=== PATIENT | male | born 1970 | race Caucasian/White ===

== ENCOUNTER → 2017-03-20 | Outpatient (CLI) | payer OTHER ==
--- NOTE | ~2017-03-20 | PUL ---
PATIENT'S NAME: RONNY ORTIZ [facility] AGE: 46 Y [address] ROOM: [place] [id number] LOCATION: [facility] ADMIT DATE: 03/20/2017 Pulmonary DISCHARGE DATE: FAMILY PHYSICIAN: DAYANA CHEUNG MD ATTENDING PHYSICIAN: DAYANA CHEUNG NAME OF PROCEDURE: Sleep study PROCEDURE DATE: 03/20/17 TECH: RAY Muñiz [place]: [facility] [id number] TECHNICAL PARAMETERS: The patient was studied using International 10/20 measuring system. While the patient was studied, there was continuous monitoring of EEG (8 leads), EOG (2 leads), EKG (3 leads), submental EMG (3 leads), tibial (4 leads), respiratory inductive plethysmography (RIP) for thoracic and abdominal effort, oral and nasal airflow with a thermocouple and pressure transducer, and oximetry. The certified technician specialist also performed visual and auditory observations noting things like body position, patient's status, breath sounds, artifact, snoring level and patient comments. Continuous sound was monitored using a 2-way speaker system and video monitoring was performed using an infrared camera. Review of the entire study was performed epoch by epoch utilizing a single epoch and multiple epoch capability sleep system. MEDICAL HISTORY: The patient is a 46-year-old massively obese gentleman with daytime sleepiness and snoring. SLEEP STAGE SUMMARY: The patient was studied for 460 minutes of which he slept 130 minutes. He fell asleep in 49 minutes and slept for 28% of the night. Sleep architecture revealed a decline in slow wave and REM sleep. RESPIRATORY SUMMARY: Oxygen saturations ranged from 78-96%. There were 54 obstructive apneas and 32 hypopneas for an apnea/hypopnea index severely elevated at 39.7 events per hour. The patient slept poorly through the night and the majority of events occurred too late in the study to allow for initiation of CPAP. EKG SUMMARY: No significant dysrhythmias were noted. LIMB MOVEMENT SUMMARY: No clinically relevant periodic limb movements were noted. SUMMARY: Severe obstructive sleep apnea. PATIENT'S NAME: RONNY ORTIZ [facility] AGE: 46 Y [address] ROOM: [place] [address] LOCATION: [facility] ADMIT DATE: 03/20/2017 Pulmonary DISCHARGE DATE: FAMILY PHYSICIAN: DAYANA CHEUNG MD ATTENDING PHYSICIAN: DAYANA CHEUNG PLAN: Would repeat this study with initiation of CPAP. Patient will receive results from the ordering provider. PENNY PASCUAL MD /[id number] dtt: 04/03/17 0739 , Penny Pascual. dtd: 03/22/17 1156
== END | disposition disaster alternative care site (69) ==
LOC: GSLP 20:24
DX: Z00.00 Encounter for general adult medical examination without abnormal findings (principal); Z13.220 Encounter for screening for lipoid disorders; Z13.1 Encounter for screening for diabetes mellitus; Z23 Encounter for immunization; G47.33 Obstructive sleep apnea (adult) (pediatric); I10 Essential (primary) hypertension; K21.9 Gastro-esophageal reflux disease without esophagitis; E66.01 Morbid (severe) obesity due to excess calories; R05 Cough